=== PATIENT | female | born 1945 | race Caucasian/White ===

== ENCOUNTER 2023-03-01 09:00 | Day surgery (SDC) | payer OTHER ==
[2023-02-27 13:57] LABS: Hematocrit 40.2 % (36.0-45.0); Lymphocytes % 26.3 % (15.3-44.8); MCV 88.4 fL (80-100); MPV 8.9 fL (7.6-11.3); RBC Red Blood Cell Count 4.55 M/uL (3.86-4.86)
[2023-02-27 14:06] LABS: Protime INR 1.23
[2023-02-27 14:12] LABS: Potassium 4.4 mEq/L (3.5-5.1)
--- NOTE | 2023-02-27 16:17 | RAD REPORT ---
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 Hypertension COMPARISON: CHEST PA AND LAT 2 VIEW dated 03/07/2011; CHEST PA AND LAT 2 VIEW dated 03/21/2007 TECHNIQUE: PA and lateral views of the chest were obtained. FINDINGS: Serpiginous density at the right base is new or more conspicuous than on the prior exam, m ay relate to vascular prominence or calcification. Right juxta hilar 8 millimeter nodule may represen t a calcified granuloma. The lungs are otherwise clear. Heart size is normal and central vasculature is within normal limits. No pleural effusion or pneumothorax seen. No acute bony finding noted. IMPRESSION: No acute cardiopulmonary process. Incidental findings as above.
--- NOTE | 2023-02-28 13:27 | EKG ---
Test Date: 2023-02-27 Test Time: 13:32:23 Statistical Machine Servicer: NAHEED MEASUREMENT RESULTS: Intervals: Rate: 65 AK: QRSD: 76 QT: 400 QTc: 416 [place]: P: AK: QRS: 72 T: 59 INTERPRETIVE STATEMENTS: Atrial fibrillation with a competing junctional pacemaker Nonspecific ST abnormality, probably digitalis effect Abnormal ECG Compared to ECG 12/04/2001 07:46:00 ST (T wave) deviation now present Sinus bradycardia no longer present Electronically Signed On 02-28-23 13:25:49 CDT by Noe Alonso
[2023-03-01] MEDS ORDERED: LIDOCAINE 1% 20 ML MDV ONE (09:13)
[2023-03-01] MEDS ORDERED: HEPA 1000U/500MLS 2,000 UNIT/1,000 ML BAG IV ONE (09:13)
[2023-03-01] MEDS ORDERED: NA CHLORIDE 0.9% 500 ML ONE (09:48)
[2023-03-01] MEDS ORDERED: FENTANYL CITR 100 MCG/2 ML ONE (10:49)
[2023-03-01] MEDS ORDERED: ATROPINE SULF 1 MG/10 ML SYR IV ONE (10:50)
[2023-03-01] MEDS ORDERED: MIDAZOLAM HCL 2 MG/2 ML INJ ONE (10:50)
[2023-03-01 16:09] VITALS: BP 153/55; O2SAT 96
--- NOTE | 2023-03-01 21:08 | OP ---
Date of Procedure: 03/01/2023 Surgeon: NILSON KRAFT Procedure Performed: Selective bilateral carotid angiogram. Indication: Carotid stenosis. Access: Left femoral artery 4-Bulgarian closed with manual pressure. Complications: None. Bleeding: Less than 20 mL. Anesthesia: Total sedation time was 30 minutes. Description Of Procedure: After risks, benefits, and alternatives were explained, patient agreed to procedure and signed informed consent. Patient was brought into cardiac catheterization laboratory, prepped and draped in sterile fashion. Then, I accessed left femoral artery using ultrasound guidanc e, fluoroscopy, and micropuncture kit, and placed a 4-Bulgarian [place] sheath and took 4-Bulgarian 3DRC i nto the aortic root. Engaged the right common carotid, took standard views, and then the left common carotid and took standard views and the catheter was removed. Sheath was removed and manual pressur e was applied for closure with good hemostasis. Findings: 1.Right common carotid artery is normal, right internal carotid has proximal 30% stenosis and the ri ght external carotid appears normal. 2.Left common carotid is normal, the left internal carotid artery in the ostial and proximal segment is severely diseased, 80% to 90% stenosis. The left external carotid artery is normal. Conclusion: Severe left internal carotid artery stenosis and mild right internal carotid artery sten osis. Plan: Consult CT surgery for endarterectomy. /LUIS ALFREDO Voice ID: [id number] Report ID: [id number]
== END 2023-03-01 13:15 | disposition home or self-care (01) ==
LOC: CCL 09:00
PROVIDERS: ATTEND Internal Medicine
DX: I65.23 Occlusion and stenosis of bilateral carotid arteries (principal); I11.0 Hypertensive heart disease with heart failure; I50.9 Heart failure, unspecified; I34.2 Nonrheumatic mitral (valve) stenosis; I48.91 Unspecified atrial fibrillation; E78.5 Hyperlipidemia, unspecified; E11.9 Type 2 diabetes mellitus without complications; E78.00 Pure hypercholesterolemia, unspecified; F17.210 Nicotine dependence, cigarettes, uncomplicated; Z79.84 Long term (current) use of oral hypoglycemic drugs; Z79.899 Other long term (current) drug therapy; Z88.8 Allergy status to other drugs, medicaments and biological substances
CPT/HCPCS: 93005; 85025; 80048; 36415; 85610; 82947; 85730; 71046; 36222; 76937; C1893; Q9966; J2001; J2250; J3010; J7040; J0461

== ENCOUNTER 2024-01-20 16:50 | Inpatient (IN) | payer OTHER ==
--- NOTE | 2024-01-20 17:53 | EDPHYS ---
Physician Documentation [facility] Name: Margret Hsieh Age: 78 yrs Sex: Female : 1945 Arrival Date: 01/20/2024 Time: 16:50 Bed IW2 Private MD: Benny Slaughter V ED Physician Historical: - Allergies: 01/19 17:16 No Known Allergies; ld1 - Home Meds: 17:16 Xarelto 15 mg oral tablet [Active]; ld1 - PMHx: 17:16 Hypertensive disorder; Diabetes mellitus; CHF; Hypercholesterolemia; ld1 - PSHx: 17:16 Hysterectomy; Appendectomy; Back surgery; Heart ablation; ld1 - Immunization history:: Adult Immunizations up to date. - Infectious Disease History:: Denies. - Social history:: Smoking status: Patient denies any tobacco usage or history of. Vital Signs: 17:13 Pulse 62; Resp 18; Temp 97.5(TE); Pulse Ox 96% on R/A; Weight 62.6 kg; Height 5 ft. 4 ld1 in. ; Pain 0/10; 17:14 BP 125 / 50; ld1 17:13 Body Mass Index 23.69 (62.60 kg, 162.56 cm) ld1 17:13 Pain Scale: Adult ld1 MDM: 17:28 Patient medically screened. cp Administered Medications: No medications were administered Disposition Summary: 01/20/24 17:52 Hospitalization Ordered Notes: Hospitalization Status: Observation sb4 Provider: Benny Slaughter sb4 Location: Telemetry/MedSurg (observation) sb4 Condition: Fair sb4 Problem: new sb4 Symptoms: are unchanged sb4 Bed/Room Type: Standard sb4 Room Assignment: 230(01/20/24 17:53) bd Diagnosis - Altered mental status, unspecified sb4 - Hypercalcemia sb4 Forms: - Medication Reconciliation Form sb4 - SBAR form sb4 - Leadership Thank You Letter sb4 Signatures: Mai Lester Corey, PA PA cp Sims, Lauren, RN RN ld1 Mary Vasquez PA-C PA-C sb4 Corrections: (The following items were deleted from the chart) 17:53 17:52 sb4 bd
--- NOTE | 2024-01-20 17:53 | ER ---
Nurse's Notes [facility] Name: Margret Hsieh Age: 78 yrs Sex: Female : 1945 Arrival Date: 01/20/2024 Time: 16:50 Bed IW2 Private MD: Benny Slaughter V Diagnosis: Altered mental status, unspecified;Hypercalcemia Presentation: 01/19 17:14 Chief complaint: Patient states: Dr. Slaughter sent patient direct admit for rapid decline ld1 in health. AMS, weakness, confusion X 1 week. Hypercalcemia. Coronavirus screen: At this time, the client does not indicate any symptoms associated with coronavirus-19. Ebola Screen: No symptoms or risks identified at this time. 17:14 Method Of Arrival: Wheelchair ld1 17:14 Initial Sepsis Screen: Does the patient meet any 2 criteria? No. Patient's initial ld1 sepsis screen is negative. Does the patient have a suspected source of infection? No. Patient's initial sepsis screen is negative. Risk Assessment: Do you want to hurt yourself or someone else? Patient reports no desire to harm self or others. Onset of symptoms was January 20, 2024 at 17:15. 17:14 Acuity: JERRY 3 ld1 17:15 Chief complaint:. ld1 Triage Assessment: 17:16 General: Appears in no apparent distress. comfortable, Behavior is calm, cooperative, ld1 appropriate for age. Pain: Denies pain. EENT: No signs and/or symptoms were reported regarding the EENT system. Neuro: Level of Consciousness is awake, alert, obeys commands, Oriented to person, place, time, situation. Cardiovascular: Capillary refill < 3 seconds Patient's skin is warm and dry. Rhythm is regular. Respiratory: Airway is patent Respiratory effort is even, unlabored. GI: Abdomen is round non-distended. : No signs and/or symptoms were reported regarding the genitourinary system. Derm: No signs and/or symptoms reported regarding the dermatologic system. Musculoskeletal: No signs and/or symptoms reported regarding the musculoskeletal system. Historical: - Allergies: 17:16 No Known Allergies; ld1 - Home Meds: 17:16 Xarelto 15 mg oral tablet [Active]; ld1 - PMHx: 17:16 Hypertensive disorder; Diabetes mellitus; CHF; Hypercholesterolemia; ld1 - PSHx: 17:16 Hysterectomy; Appendectomy; Back surgery; Heart ablation; ld1 - Immunization history:: Adult Immunizations up to date. - Infectious Disease History:: Denies. - Social history:: Smoking status: Patient denies any tobacco usage or history of. Vital Signs: 17:13 Pulse 62; Resp 18; Temp 97.5(TE); Pulse Ox 96% on R/A; Weight 62.6 kg; Height 5 ft. 4 ld1 in. ; Pain 0/10; 17:14 BP 125 / 50; ld1 17:13 Body Mass Index 23.69 (62.60 kg, 162.56 cm) ld1 17:13 Pain Scale: Adult ld1 ED Course: 16:54 Patient arrived in ED. mr 16:55 Benny Slaughter MD is Private Physician. mr 17:15 Triage completed. ld1 17:16 Arm band placed on right wrist. ld1 17:52 Benny Slaughter MD is Hospitalizing Provider. sb4 Administered Medications: No medications were administered Outcome: 17:52 Decision to Hospitalize by Provider. sb4 18:33 Patient left the ED. as6 Signatures: Margaret Zaidi, Reg Reg mr Betsey Galloway, RN RN ld1 Enmanuel Holbrook RN RN as6 Mary Vasquez PA-C PALupe sb4 Corrections: (The following items were deleted from the chart) 17:16 17:14 Chief complaint: Patient states: Dr. Slaughter sent patient direct admit for rapid ld1 decline in health. AMS, weakness, confusion X 1 week. ld1
[2024-01-20 20:21] LABS: Absolute Eosinophils 0.2 K/uL (0-0.5); Absolute Lymphocytes (CBC) 2.9 K/uL (0.7-4.9); Absolute Monocytes 0.6 K/uL (0.1-1.3); Basophils % 0.6 % (0-1.3); Eosinophils % 2.2 % (0-4.4); Hematocrit 34.5 % (36.0-45.0); Hemoglobin 11.1 g/dL (12.0-15.0); Lymphocytes % 37.5 % (15.3-44.8); MCH 27.5 pg (27.0-35.0); MCHC 32.3 g/dL (32.0-36.0); MCV 85.1 fL (80-100); MPV 10.3 fL (7.6-11.3); Monocytes % 7.2 % (3.3-12.3); Neutrophils % 52.5 % (41.7-73.7); Platelets 181 thou/uL (152-406); RBC Red Blood Cell Count 4.05 M/uL (3.86-4.86); Red Cell Distribution Width 14.7 % (12.1-15.2)
[2024-01-20 20:31] LABS: PT Prothrombin Time 15.7 SECONDS (9.5-12.5); PTT, Activated Partial Thromb 33.5 SECONDS (24.3-36.9); Protime INR 1.44
[2024-01-20 20:43] VITALS: BMI 23.6
[2024-01-20 20:53] LABS: Calcium Oxalate Crystals- Ur Few /HPF (None Seen); Specific Gravity 1.018 (1.005-1.030); Sqamous Epithelial <5 /HPF (None Seen); Urine Bacteria None Seen /HPF (<20); Urine Bilirubin NEGATIVE (Negative); Urine Blood Negative (Negative); Urine Clarity Turbid (Clear); Urine Color Yellow (Yellow); Urine Culture Reflex Order NOT NEEDED; Urine Glucose NEGATIVE (Negative); Urine Ketones TRACE (Negative); Urine Microscopic Reflex YN ORDER UMIC; Urine Mucus Slight /HPF (None Seen); Urine Nitrite NEGATIVE (Negative); Urine Protein NEGATIVE (Negative); Urine Urobilinogen Normal (Normal); Urine pH 5.5 (5.0-7.0)
[2024-01-20 21:31] LABS: Albumin 3.6 g/dL (3.4-5.0); Albumin/Globulin Ratio 1.1 (1.1-1.8); Bilirubin Total 0.3 mg/dL (0.2-1.0); Globulin 3.2 g/dL (2.3-3.5); Magnesium 1.5 mg/dL (1.6-2.4); Phosphorus 1.8 mg/dL (2.5-4.9); Protein, Total 6.8 g/dL (6.4-8.2); Thyroid Stimulating Hormone 2.33 uIU/mL (0.358-3.740)
[2024-01-20] MEDS ORDERED: cloNIDine HCL 0.1 MG TAB PO PRN (21:52)
[2024-01-20] MEDS: ATORVASTATIN 40 MG TAB PO SCH (23:25)
[2024-01-20] MEDS: DULOXETINE 30 MG CAP PO SCH (23:25)
[2024-01-21] MEDS: MAGNESIUM OXIDE 400 MG TAB PO SCH (09:00)
[2024-01-21] MEDS: carvediloL 6.25 MG TAB PO SCH (09:09)
[2024-01-21] MEDS: FUROSEMIDE 20 MG TABLET PO SCH (09:10)
[2024-01-21] MEDS: PRIMIDONE 50 MG TAB PO SCH (09:10)
[2024-01-21] MEDS: GLIMEPIRIDE 2 MG TABLET PO SCH (09:10)
[2024-01-21] MEDS: LOSARTAN POTASSIUM 50 MG TABLET PO SCH (09:10)
[2024-01-21] MEDS: ASPIRIN EC 81 MG TAB PO SCH (09:11)
--- NOTE | 2024-01-21 11:36 | RAD REPORT ---
EXAM DESCRIPTION: MRI - Brain Wo Cont - 01/21/2024 8:38 am COMPARISON: MRI 2018 TECHNIQUE: Axial, sagittal, and coronal magnetic resonance images of the brain were obtained. FINDINGS: Marked signal within periventricular, deep and subcortical white matter which has progress ed since 2018. Abnormal signal also involves the pro matter right frontal and right parietal lobes. Prominent cerebral atrophy is present. Diffusion-weighted/ADC mapping does not reveal evidence of acute infarction. The ventricles are normal caliber. An extra-axial fluid collection is not noted. Fluid within the sinuses/mastoids is not seen IMPRESSION: Marked signal within periventricular, deep and subcortical white matter which has progre ssed since 2018. This may represent ischemic changes secondary to small vessel disease. A demyelinati ng or inflammatory process can also have this appearance Additional abnormal signal within the pro matter right frontal and parietal lobes may be secondary t o old infarction. An MRI with contrast may be helpful to determine if there is abnormal enhancement to indicate an acut e process
[2024-01-21] MEDS ORDERED: RIVAROXABAN 10 MG TABLET PO SCH (17:00)
[2024-01-21] MEDS: RIVAROXABAN 20 MG TABLET PO SCH (17:39)
--- NOTE | 2024-01-21 22:12 | P.PN ---
Subjective Date of Service: 01/21/24 Chief Complaint: WEAKNESS, CONFUSION Subjective: Improving OVER A WEEK SHE GOT GRADUALLY WEAKER AND QUIT WALKING. HER CALCIUM LEVEL CAME OUT HIGH AT 11.5 Review of Systems 10-point ROS is otherwise unremarkable Physical Examination - Vital Signs Temperature: 98.5 F Blood Pressure: 116/54 Pulse: 50 Respirations: 14 Pulse Ox (%): 90 - Physical Exam General: Acute distress, Mild distress HEENT: Atraumatic, PERRLA, EOMI Neck: Supple, JVD not distended Respiratory: Clear to auscultation bilaterally, Normal air movement Cardiovascular: Regular rate/rhythm, Normal S1 S2 Gastrointestinal: Normal bowel sounds, No tenderness Musculoskeletal: No tenderness Integumentary: No rashes Neurological: Other (GEN WEAK, DEMENTIA.) Lymphatics: No axilla or inguinal lymphadenopathy - Studies Medications List Reviewed: Yes Assessment And Plan - Current Problems (Diagnosis) (1) Altered mental state Current Visit: Yes Status: Acute Plan: MAY BE FROM HYPERCALCEMIA MRI NEG BRAIN EXCEPT FOR AGE RELATED CHANGES. CT CHEST REPORT PENDING CALLED DR. ESTRADA TO GET REPORT. (2) Hypercalcemia Current Visit: Yes Status: Acute Plan: LIKELY REASON FOR ALTERED MENTAL STATUS.
[2024-01-22 06:52] LABS: Hemoglobin 10.8 g/dL (12.0-15.0); RBC Red Blood Cell Count 3.89 M/uL (3.86-4.86)
[2024-01-22 06:53] LABS: Absolute Eosinophils 0.2 K/uL (0-0.5); Absolute Monocytes 0.6 K/uL (0.1-1.3); Basophils % 0.4 % (0-1.3); Eosinophils % 3.9 % (0-4.4); Hematocrit 32.7 % (36.0-45.0); Lymphocytes % 34.7 % (15.3-44.8); MCH 27.9 pg (27.0-35.0); MCHC 33.1 g/dL (32.0-36.0); MCV 84.1 fL (80-100); MPV 9.3 fL (7.6-11.3); Monocytes % 9.6 % (3.3-12.3); Neutrophils % 51.4 % (41.7-73.7); Nucleated Red Blood Cells % 0.2 % (0-0); Platelets 171 thou/uL (152-406); Red Cell Distribution Width 14.8 % (12.1-15.2)
[2024-01-22 07:06] LABS: Anion Gap 3.9 mEq/L (5.0-15.0); Potassium 3.9 mEq/L (3.5-5.1)
[2024-01-22 09:45] VITALS: O2SAT 91
--- NOTE | 2024-01-22 10:08 | RAD REPORT ---
EXAM DESCRIPTION: CT - Thorax W/ Con - 01/20/2024 11:01 pm CLINICAL HISTORY: Hypercalcemia COMPARISON: None TECHNIQUE: Computed axial tomography of the chest was obtained. 100 cc Isovue 300 was administered i ntravenously. All CT scans are performed using dose optimization technique as appropriate and may include automated exposure control or mA/KV adjustment according to patient size. FINDINGS: 1.9 centimeter spiculated nodule posterior right upper lobe. 4 millimeter left upper lobe nodule Mild COPD No mediastinal or hilar lymphadenopathy seen A pleural effusion is not present. A pericardial effusion is not seen. Cirrhotic liver suspected. Coronary arterial calcifications IMPRESSION: 1.9 centimeter right upper lobe nodule probably neoplasm . Further evaluation with a PET -CT scan, tissue sampling or follow-up CT chest 3 months recommended 4 millimeter left upper lobe nodule . Followup CT chest could be obtained in 1 year for re-evaluation
[2024-01-22 13:30] VITALS: BP 118/51; TEMP 97.4
--- NOTE | 2024-01-22 18:11 | P.DS ---
Admission Date: 01/22/24 Discharge Date: 01/22/24 Disposition: DC HOME/HOME HEALTH CARE Discharge Condition: FAIR Reason for Admission: WEAKNESS, CONFUSION - Problems (1) Altered mental state Status: Acute (2) Hypercalcemia Status: Acute Hospital Course: ZARINA CAME WITH WEAKNESS AND HYPERCALCEMIA. I ORDERED CT CHEST LUNG CANCER CAN GIVE RISE TO THIS. LUNG CT SHOWS 2 CM MASS. I WILL DISCUSS WITH PT ABOUT THIS IN OFFICE. SHE HAS WALKED WITH WALKER. CALCIUM HAS COME DOWN WITH IV FLUIDS. SHE IS STABLE TO GO HOME WITH DAUGHTER. Vital Signs/Physical Exam: Temp Pulse Resp BP Pulse Ox 97.4 F 64 18 118/51 L 92 01/22/24 12:00 01/22/24 12:00 01/22/24 12:00 01/22/24 12:00 01/22/24 12:00 Laboratory Data at Discharge: WBC 5.90 thou/uL (4.3-10.9) 01/22/24 06:15 Hgb 10.8 g/dL (12.0-15.0) L 01/22/24 06:15 Hct 32.7 % (36.0-45.0) L 01/22/24 06:15 Plt Count 171 thou/uL (152-406) 01/22/24 06:15 PT 15.7 SECONDS (9.5-12.5) H 01/20/24 19:57 INR 1.44 01/20/24 19:57 APTT 33.5 SECONDS (24.3-36.9) 01/20/24 19:57 Sodium 136 mEq/L (136-145) 01/22/24 06:15 Potassium 3.9 mEq/L (3.5-5.1) 01/22/24 06:15 BUN 22 mg/dL (7-18) H 01/22/24 06:15 Creatinine 0.81 mg/dL (0.55-1.02) 01/22/24 06:15 Glucose 157 mg/dL (74-106) H 01/22/24 06:15 Phosphorus 1.8 mg/dL (2.5-4.9) L 01/20/24 19:57 Magnesium 1.5 mg/dL (1.6-2.4) L 01/20/24 19:57 Total Bilirubin 0.3 mg/dL (0.2-1.0) 01/20/24 19:57 AST 17 U/L (15-37) 01/20/24 19:57 ALT 21 U/L (13-56) 01/20/24 19:57 Alkaline Phosphatase 56 U/L (45-117) 01/20/24 19:57 Home Medications: Aspirin [Aspirin EC] 81 mg PO DAILY 01/20/24 Atorvastatin Calcium [Lipitor] 40 mg PO BEDTIME 01/20/24 B-Complex with Vitamin C [B-Complex with C] 1 tab PO DAILY 01/20/24 Duloxetine HCl [Cymbalta] 30 mg PO BEDTIME 01/20/24 Furosemide [Lasix] 20 mg PO DAILY 01/20/24 Glimepiride 4 mg PO BID 01/20/24 Losartan Potassium [Cozaar] 25 mg PO DAILY 01/20/24 Magnesium Oxide [Mag 0X*] 400 mg PO DAILY 01/20/24 Metformin ER [Glucophage ER*] 1,000 mg PO BID 01/20/24 Primidone [Mysoline] 50 mg PO DAILY 01/20/24 Rivaroxaban [Xarelto] 20 mg PO BEDTIME 01/20/24 carvediloL [Carvedilol] 6.25 mg PO BID 01/20/24 Physician Discharge Instructions: Home Health arranged: [facility] P:[phone] F:[phone] Followup: Benny Slaughter MD [Primary Care Provider] - 1 Week
[2024-01-24 14:04] LABS: 1,25 Dihydroxy Vitamin D3 60 pg/mL; Vitamin D 1,25-Dihydroxy Total 60 pg/mL (18-72); Vitamin D,1,25-OH2, D2 <8 pg/mL
== END 2024-01-22 13:45 | disposition home health service (06) | DRG 641 ==
LOC: ER 16:50 → ERHOLD 17:42 → 2ND 18:10 → OBSVTOIN 01-22 08:59 → INTOOBSV 01-22 09:17
PROVIDERS: ADMIT Internal Medicine; ATTEND Internal Medicine
DX: E83.52 Hypercalcemia (principal); I10 Essential (primary) hypertension; E11.9 Type 2 diabetes mellitus without complications; E78.00 Pure hypercholesterolemia, unspecified; R91.8 Other nonspecific abnormal finding of lung field; F03.90 Unspecified dementia, unspecified severity, without behavioral disturbance, psychotic disturbance, mood disturbance, and anxiety; Z88.7 Allergy status to serum and vaccine; Z88.8 Allergy status to other drugs, medicaments and biological substances; Z90.49 Acquired absence of other specified parts of digestive tract; Z79.02 Long term (current) use of antithrombotics/antiplatelets; Z79.84 Long term (current) use of oral hypoglycemic drugs; Z79.82 Long term (current) use of aspirin; Z79.01 Long term (current) use of anticoagulants; Z90.710 Acquired absence of both cervix and uterus; Z79.899 Other long term (current) drug therapy
CPT/HCPCS: 36415; 70551; 71260; 80048; 80053; 81001; 82306; 82607; 82652; 82947; 83735; 83970; 84100; 84443; 85025; 85610; 85730; 97116; 97161; 97530; 99281; G0378; Q9967

== ENCOUNTER 2024-09-05 10:50 | Emergency (ER) | payer OTHER ==
--- NOTE | 2024-09-05 15:06 | ER ---
Nurse's Notes [facility] Name: Margret Hsieh Age: 78 yrs Sex: Female : 1945 Arrival Date: 09/05/2024 Time: 10:50 Bed 17 Private MD: Diagnosis: Epistaxis Presentation: 09/05 11:33 Chief complaint: Patient states: Spontaneous nose bleeding off/on since yesterday. No ll1 fever. On Xarelto. Coronavirus screen: Client denies travel out of the [place] in the last 14 days. At this time, the client does not indicate any symptoms associated with coronavirus-19. Ebola Screen: Patient denies travel to an Ebola-affected area in the 21 days before illness onset. 11:33 Method Of Arrival: Wheelchair ll1 12:04 Acuity: JERRY 3 iw 12:09 Initial Sepsis Screen: Does the patient meet any 2 criteria? No. Patient's initial ll1 sepsis screen is negative. Does the patient have a suspected source of infection? No. Patient's initial sepsis screen is negative. Risk Assessment: Do you want to hurt yourself or someone else? Patient reports no desire to harm self or others. Onset of symptoms was September 04, 2024. Triage Assessment: 12:09 General: Appears in no apparent distress. Behavior is calm, cooperative, appropriate ll1 for age. Pain: Denies pain. EENT: Reports nasal bleeding (resolved during triage). Historical: - Allergies: 11:32 potassium; ll1 - PMHx: 11:32 CHF; diabetes mellitus; Hypercholesterolemia; Hypertensive disorder; ll1 - PSHx: 11:32 Appendectomy; back surgery; Heart ablation; hysterectomy; ll1 - Immunization history:: Adult Immunizations up to date. - Infectious Disease History:: Denies. - Social history:: Smoking status: Patient denies any tobacco usage or history of. Screenin:30 [facility] ED Fall Risk Assessment (Adult) History of falling in the last 3 months, db including since admission No falls in past 3 months (0 pts) Confusion or Disorientation No (0 pts) Intoxicated or Sedated No (0 pts) Impaired Gait Yes (1 pt) Mobility Assist Device Used Yes (1 pt) Altered Elimination No (0 pt) Score/Fall Risk Level 0 - 2 = Low Risk Oriented to surroundings, Maintained a safe environment. Abuse screen: Denies threats or abuse. Denies injuries from another. Nutritional screening: No deficits noted. Tuberculosis screening: No symptoms or risk factors identified. Assessment: 13:30 Reassessment: Patient appears in no apparent distress at this time. Patient and/or db family updated on plan of care and expected duration. Pain level reassessed. Patient is alert, oriented x 3, equal unlabored respirations, skin warm/dry/pink. General: Appears in no apparent distress. comfortable, Behavior is calm, cooperative. Neuro: Level of Consciousness is awake, alert, obeys commands, Oriented to person, place, time, situation. Respiratory: Airway is patent Respiratory effort is even, unlabored, Respiratory pattern is regular, symmetrical. EENT: Reports NOSE BLEED THAT HAS STOPPED. 14:55 Reassessment: Patient appears in no apparent distress at this time. Patient and/or db family updated on plan of care and expected duration. Pain level reassessed. Patient is alert, oriented x 3, equal unlabored respirations, skin warm/dry/pink. PATIENT AMBULATORY TO RESTROOM. 15:32 Reassessment: Patient appears in no apparent distress at this time. Patient and/or db family updated on plan of care and expected duration. Pain level reassessed. Patient is alert, oriented x 3, equal unlabored respirations, skin warm/dry/pink. Vital Signs: 11:33 BP 116 / 51; Pulse 72; Resp 17; Temp 97.3; Pulse Ox 95% ; Weight 65.32 kg; Height 5 ft. ll1 2 in. ; Pain 0/10; 15:04 BP 164 / 60; am7 15:15 BP 148 / 54; Pulse 56; Resp 16; Pulse Ox 96% on R/A; db 11:33 Body Mass Index 26.34 (65.32 kg, 157.48 cm) ll1 11:33 Pain Scale: Adult ll1 ED Course: 10:52 Patient arrived in ED. mr 11:32 Arm band placed on. ll1 12:04 Triage completed. iw 12:47 Brian Rivero MD is Attending Physician. bo1 14:55 Lisa Fonseca, RN is Primary Nurse. db 14:58 No provider procedures requiring assistance completed. db 15:31 Patient has correct armband on for positive identification. Bed in low position. Call db light in reach. Side rails up X 1. Provided Education on: DISCHARGE AND FOLLOWUP. Pulse ox on. NIBP on. Warm blanket given. Pillow given. 15:32 Patient did not have IV access during this emergency room visit. db Administered Medications: No medications were administered Medication: 13:30 VIS not applicable for this client. db Outcome: 15:05 Discharge ordered by . bo1 15:32 Discharged to home ambulatory, with family, db 15:32 Condition: stable 15:32 Discharge instructions given to patient, family, Instructed on discharge instructions, follow up and referral plans. Prescriptions given X 1, 15:33 Patient left the ED. db Signatures: Margaret Zaidi, Reg Reg mr Elena Mitchell, RN RN iw Dave Saxena RN RN ll1 Lisa Fonseca RN RN db Brian Rivero MD MD bo1 Theodora Alfred am7 Corrections: (The following items were deleted from the chart) 12:25 11:33 Chief complaint: Patient states: Spontaneous node bleeding off/on since ll1 yesterday. No fever ll1 12:26 11:33 Chief complaint: Patient states: Spontaneous nose bleeding off/on since ll1 yesterday. No fever ll1 15:31 15:04 Pulse 68bpm; Pulse Ox 94%; am7 db
[2024-09-05 15:39] VITALS: TEMP 97.3
[2024-09-05 15:41] VITALS: BP 148/54; O2SAT 96
--- NOTE | 2024-09-06 15:33 | EDPHYS ---
Physician Documentation [facility] Name: Margret Hsieh Age: 78 yrs Sex: Female : 1945 Arrival Date: 09/05/2024 Time: 10:50 Bed 17 Private MD: ED Physician Brian Rivero HPI: 09/06 07:22 This 78 yrs old Female presents to ER via Wheelchair with complaints of Nose Bleed. bo1 07:22 The patient presents with a nose bleed, occurred from an unknown cause, Pt's family bo1 think she's picked her nose Pt is on a blood thinner - Xarelto. Onset: The symptoms/episode began/occurred suddenly, yesterday, And again this AM today at 3am. Pinching and pressure applied till stopped.. Hx of nosebleeds. Now, not bleeding and none in the past 2-3 hours. 07:26 The estimated quantity was perhaps 1 tablespoon of blood. bo1 07:51 Severity of symptoms: At their worst the symptoms were mild. bo1 07:52 Severity of symptoms: in the emergency department the symptoms have improved. bo1 Historical: - Allergies: 09/05 11:32 potassium; ll1 - PMHx: 11:32 CHF; diabetes mellitus; Hypercholesterolemia; Hypertensive disorder; ll1 - PSHx: 11:32 Appendectomy; back surgery; Heart ablation; hysterectomy; ll1 - Immunization history:: Adult Immunizations up to date. - Infectious Disease History:: Denies. - Social history:: Smoking status: Patient denies any tobacco usage or history of. ROS: 09/06 07:24 Constitutional: Negative for fever, chills, and weight loss bo1 ENT: Positive for nose bleed, At the right nostril only, no pain, Neck: Negative for pain with movement, pain at rest, Cardiovascular: Negative for chest pain, Respiratory: Negative for cough, shortness of breath, Abdomen/GI: Negative for abdominal pain, nausea and vomiting, All other systems are negative, Exam: 07:27 Constitutional: This is a well developed, well nourished patient who is awake, alert, bo1 and in no acute distress. 07:27 Constitutional: The patient appears alert, awake, comfortable, non-toxic, 07:27 Head/face: Exam is negative for acute changes, 07:27 ENT: Nose: Mild "wet" string of previous blood at the outside wall of the right anterior nostril, pt's family had applied Neosporin. No active bleeding in the nare and left is clear, Posterior pharynx: is normal, no acute changes, Clear, no blood streaks, 07:27 Neck: External neck: is normal, no acute changes, Vital Signs: 09/05 11:33 BP 116 / 51; Pulse 72; Resp 17; Temp 97.3; Pulse Ox 95% ; Weight 65.32 kg; Height 5 ft. ll1 2 in. ; Pain 0/10; 15:04 BP 164 / 60; am7 15:15 BP 148 / 54; Pulse 56; Resp 16; Pulse Ox 96% on R/A; db 11:33 Body Mass Index 26.34 (65.32 kg, 157.48 cm) ll1 11:33 Pain Scale: Adult ll1 MDM: 12:48 Medical Screening Exam initiated bo1 09/06 07:26 Differential diagnosis: spontaneous epistaxis, Pt on a blood thinner. Data reviewed: bo1 vital signs. 07:29 ED course: No action needed or recommended at the present time. TXA was discussed and bo1 both pt and family would like to try a PO off label use of TXA if the nosebleed reoccurs. Administered Medications: No medications were administered Disposition Summary: 09/05/24 15:05 Discharge Ordered Notes: Location: Home bo1 Problem: new bo1 Symptoms: have improved bo1 Condition: Stable bo1 Diagnosis - Epistaxis bo1 Followup: bo1 - With: Private Physician - When: Upon discharge from the Emergency Department - Reason: Recheck today's complaints, Continuance of care Discharge Instructions: - Discharge Summary Sheet bo1 - Nosebleed, Adult bo1 Forms: - Medication Reconciliation Form bo1 - Antibiotic Education bo1 - Prescription Opioid Use bo1 - Patient Portal Instructions bo1 - Leadership Thank You Letter bo1 Prescriptions: - tranexamic acid 650 mg Oral tablet - take 1 tablet ORAL route 3 times per day PRN NOSEBLEED; 6 tablet; Refills: 0, bo1 Product Selection Permitted Signatures: Dave Saxena RN RN ll1 Lisa Fonseca RN RN db Oei, MD TARA Torres bo1
== END 2024-09-05 15:33 | disposition home or self-care (01) ==
LOC: ER 10:50
DX: R04.0 Epistaxis (principal); Z79.01 Long term (current) use of anticoagulants
CPT/HCPCS: 99283

== ENCOUNTER 2024-09-18 19:28 | Emergency (ER) | payer OTHER ==
[2024-09-18 21:19] LABS: Absolute Eosinophils 0.3 K/uL (0-0.5); Absolute Lymphocytes (CBC) 2.1 K/uL (0.7-4.9); Absolute Monocytes 0.6 K/uL (0.1-1.3); Absolute Neutrophil 4.6 K/uL (1.8-8.0); Basophils % 0.5 % (0-1.3); Eosinophils % 3.9 % (0-4.4); Hematocrit 31.8 % (36.0-45.0); Hemoglobin 9.9 g/dL (12.0-15.0); Lymphocytes % 27.1 % (15.3-44.8); MCH 24.5 pg (27.0-35.0); MCHC 31.3 g/dL (32.0-36.0); MCV 78.3 fL (80-100); MPV 8.2 fL (7.6-11.3); Monocytes % 7.7 % (3.3-12.3); Neutrophils % 60.8 % (41.7-73.7); Nucleated Red Blood Cells % 0.1 % (0-0); Platelets 277 thou/uL (152-406); RBC Red Blood Cell Count 4.06 M/uL (3.86-4.86); Red Cell Distribution Width 16.9 % (12.1-15.2)
[2024-09-18 21:35] LABS: Albumin/Globulin Ratio 0.8 (1.1-1.8); Anion Gap 7.1 mEq/L (5.0-15.0); Bilirubin Total 0.2 mg/dL (0.2-1.0); Globulin 3.9 g/dL (2.3-3.5); Potassium 4.1 mEq/L (3.5-5.1); Protein, Total 6.9 g/dL (6.4-8.2)
[2024-09-18 22:06] LABS: Specific Gravity 1.017 (1.005-1.030); Sqamous Epithelial <5 /HPF (None Seen); Urine Bacteria <20 /HPF (<20); Urine Bilirubin NEGATIVE (Negative); Urine Blood Negative (Negative); Urine Clarity Clear (Clear); Urine Color Yellow (Yellow); Urine Crystals Unidentified Few /HPF (None Seen); Urine Culture Reflex Order NOT NEEDED; Urine Glucose NEGATIVE (Negative); Urine Ketones NEGATIVE (Negative); Urine Microscopic Reflex YN ORDER UMIC; Urine Nitrite NEGATIVE (Negative); Urine Protein NEGATIVE (Negative); Urine RBC <5 /HPF (None Seen); Urine Urobilinogen Normal (Normal); Urine WBC <5 /HPF (<5); Urine pH 5.5 (5.0-7.0)
--- NOTE | 2024-09-18 22:51 | RAD REPORT ---
EXAMINATION: CT Abdomen Pelvis W Contrast CLINICAL INDICATION: Female, 78 years old. urinary retention TECHNIQUE: CT abdomen and pelvis was performed, after the administration of IV contrast, as per [facility] protocol. Axial, sagittal and coronal reconstructions were obtained. One or more of the following dose reduction techniques were used: Automated exposure control, adjustment of the mA and k V according to patient size, and iterative reconstruction. Unless otherwise specified, incidental findings do not require dedicated imaging follow-up. COMPARISON: 01/20/[address] FINDINGS: LOWER CHEST: The visualized lung bases are clear. LIVER: Normal in size and contour. No focal lesion. BILIARY SYSTEM: Decompressed gallbladder limiting evaluation. No other suspicious abnormalities. SPLEEN: Normal size. No focal lesion. PANCREAS: No mass, ductal dilation, or zabrina-pancreatic fluid. ADRENALS: Nodular left adrenal gland thickening, stable. KIDNEYS: Normal size and contour. No hydronephrosis. URINARY BLADDER: Decompressed with Wheat catheter in place. GASTROINTESTINAL TRACT: No evidence of free air, significant intra-abdominal free fluid, bowel obstru ction or abscess. APPENDIX: Normal appendix. LYMPH NODES: No lymphadenopathy. MUSCULOSKELETAL: No acute or suspicious osseous abnormality. Sequelae of posterior spinal decompressi on, with pronounced marginally calcified disc extrusions at L1-2 and L2-3. ADDITIONAL FINDINGS: None. IMPRESSION: No acute or concerning abnormalities seen in the abdomen or pelvis. Sequelae of posterior spinal decompression with pronounced disc extrusions with annular calcification s at L1-2 and L2-3. Whether these findings relate to patient's symptoms is uncertain. There is concern for radiculopathy, additional evaluation by lumbar spine MRI would be more helpful.
--- NOTE | 2024-09-18 23:18 | ER ---
Nurse's Notes [facility] Name: Margret Hsieh Age: 78 yrs Sex: Female : 1945 Arrival Date: 09/18/2024 Time: 19:28 Bed 14 Private MD: Diagnosis: Urinary retention Presentation: 09/18 20:03 Chief complaint: Patient states: urinary retention onset yesterday. Pt states that she cm10 has not been able to urinate since yesterday. Coronavirus screen: Client denies travel out of the [place] in the last 14 days. Ebola Screen: Patient denies travel to an Ebola-affected area in the 21 days before illness onset. No symptoms or risks identified at this time. Initial Sepsis Screen: Does the patient meet any 2 criteria? No. Patient's initial sepsis screen is negative. Does the patient have a suspected source of infection? No. Patient's initial sepsis screen is negative. Risk Assessment: Do you want to hurt yourself or someone else? Patient reports no desire to harm self or others. Onset of symptoms was September 17, 2024. 20:03 Method Of Arrival: Ambulatory cm10 20:03 Acuity: JERRY 3 cm10 Triage Assessment: 20:04 General: Appears in no apparent distress. comfortable, Behavior is calm, cooperative. cm10 Pain: Denies pain. Neuro: No deficits noted. Level of Consciousness is awake, alert, obeys commands, Oriented to person, place, time, situation, Appropriate for age. Respiratory: No deficits noted. Airway is patent Respiratory effort is even, unlabored, Respiratory pattern is regular, symmetrical. Historical: - Allergies: 20:04 potassium; cm10 - PMHx: 20:04 CHF; diabetes mellitus; Hypercholesterolemia; Hypertensive disorder; Cerebrovascular cm10 accident; - PSHx: 20:04 Appendectomy; back surgery; Heart ablation; hysterectomy; cm10 - Immunization history:: Adult Immunizations up to date. - Infectious Disease History:: Denies. - Social history:: Smoking status: Patient denies any tobacco usage or history of. Screenin:00 [facility] ED Fall Risk Assessment (Adult) History of falling in the last 3 months, rg5 including since admission No falls in past 3 months (0 pts) Confusion or Disorientation No (0 pts) Intoxicated or Sedated No (0 pts) Impaired Gait Yes (1 pt) Mobility Assist Device Used Yes (1 pt) Altered Elimination Yes (1 pt) Score/Fall Risk Level 3 or more points = High Risk Oriented to surroundings, Maintained a safe environment, Hourly rounding (assess needs \T\ fall precautionary measures) done, Used ambulatory aids as needed (educated on \T\ assisted with). Abuse screen: Denies threats or abuse. Nutritional screening: No deficits noted. Tuberculosis screening: No symptoms or risk factors identified. Assessment: 20:00 General: Appears in no apparent distress. uncomfortable, Behavior is calm, cooperative, rg5 appropriate for age. 20:00 Pain: Denies pain. Neuro: Level of Consciousness is awake, alert, obeys commands, rg5 Oriented to person, place, time. Cardiovascular: Denies chest pain, Patient's skin is warm and dry. Respiratory: Airway is patent Trachea midline Respiratory effort is even, unlabored. GI: Abdomen is round non-distended. : Reports inability to void. EENT: No deficits noted. Derm: No signs and/or symptoms reported regarding the dermatologic system. Musculoskeletal: Circulation, motion, and sensation intact. Range of motion: intact in all extremities. 21:00 Reassessment: Patient and/or family updated on plan of care and expected duration. Pain rg5 level reassessed. Patient is alert, oriented x 3, equal unlabored respirations, skin warm/dry/pink. 22:09 Reassessment: Patient and/or family updated on plan of care and expected duration. Pain rg5 level reassessed. Patient is alert, oriented x 3, equal unlabored respirations, skin warm/dry/pink. 23:15 Reassessment: Patient and/or family updated on plan of care and expected duration. Pain rg5 level reassessed. Patient is alert, oriented x 3, equal unlabored respirations, skin warm/dry/pink. Patient states feeling better. Patient states symptoms have improved. Vital Signs: 20:03 BP 134 / 49; Pulse 64; Resp 16; Temp 97.7(TE); Pulse Ox 98% on R/A; Weight 65.32 kg; cm10 Height 5 ft. 2 in. ; Pain 0/10; 20:23 BP 143 / 53; Pulse 58; Resp 17; Pulse Ox 96% on R/A; rg5 21:30 BP 149 / 76; Pulse 62; Resp 17 S; Pulse Ox 96% on R/A; Pain 0/10; rg5 22:39 BP 140 / 73; Pulse 62; Resp 17; Pulse Ox 97% on R/A; Pain 0/10; rg5 20:03 Body Mass Index 26.34 (65.32 kg, 157.48 cm) cm10 20:03 Pain Scale: Adult cm10 21:30 Pain Scale: Adult rg5 22:39 Pain Scale: Adult rg5 ED Course: 19:30 Patient arrived in ED. jj6 20:00 Patient has correct armband on for positive identification. Bed in low position. Call rg5 light in reach. Side rails up X 1. Door closed. Noise minimized. Warm blanket given. Verbal reassurance given. 20:00 No provider procedures requiring assistance completed. Inserted saline lock: 20 gauge rg5 in right antecubital area, using aseptic technique. Blood collected. Flushed with 10 mL NS. 20:03 Deepthi Atwood, RN is Primary Nurse. cm10 20:04 Triage completed. cm10 20:04 Arm band placed on right wrist. Patient placed in waiting room. cm10 20:10 Gricelda Golden MD is Attending Physician. sd2 20:15 Asad Callejas, PAULINA is Primary Nurse. rg5 20:32 Bladder scan completed. 341ml. af3 21:34 Wheat cath inserted, using sterile technique, 16 Fr., by moshgiach, balloon inflated, to af3 gravity drainage, urine specimen collected. 22:09 CT Abd/Pelvis - IV Contrast Only In Process Unspecified. EDMS 23:33 Provided Education on: post er care. rg5 23:34 IV discontinued, bleeding controlled, No redness/swelling at site. Pressure dressing rg5 applied. Administered Medications: No medications were administered Medication: 20:00 VIS not applicable for this client. rg5 Outcome: 23:17 Discharge ordered by . sd2 23:33 Discharged to home ambulatory, rg5 23:33 Condition: stable 23:33 Instructed on discharge instructions, follow up and referral plans. Demonstrated understanding of instructions, follow-up care, 23:34 Patient left the ED. rg5 Signatures: Dispatcher [employer] EDMS TomaszDarling [email or web address] Gricelda Golden MD MD sd2 Deepthi Atwood, RN RN cm10 Asad Callejas, RN RN rg5 Donaldo, Marisabel af3
--- NOTE | 2024-09-18 23:18 | EDPHYS ---
Physician Documentation [facility] Name: Margret Hsieh Age: 78 yrs Sex: Female : 1945 Arrival Date: 09/18/2024 Time: 19:28 Bed 14 Private MD: ED Physician Gricelda Golden HPI: 09/18 20:40 This 78 yrs old Female presents to ER via Ambulatory with complaints of Urinary sd2 Retention. 20:40 78 yo F reports inability to urinate since yesterday morning. No dribbling but states sd2 she does not drink much aside from milk. She is on diuretics for CHF. Denies any abdominal pain and has been having normal BMs. NO recent medication changes or other issues. Denies abdominal distention or discomfort or any other symptoms.. Historical: - Allergies: 20:04 potassium; cm10 - PMHx: 20:04 CHF; diabetes mellitus; Hypercholesterolemia; Hypertensive disorder; Cerebrovascular cm10 accident; - PSHx: 20:04 Appendectomy; back surgery; Heart ablation; hysterectomy; cm10 - Immunization history:: Adult Immunizations up to date. - Infectious Disease History:: Denies. - Social history:: Smoking status: Patient denies any tobacco usage or history of. ROS: 20:40 Constitutional: Negative for fever, chills, and weight loss, Eyes: Negative for injury, sd2 pain, redness, and discharge, Cardiovascular: Negative for chest pain, palpitations, and edema, Respiratory: Negative for shortness of breath, cough, wheezing. Abdomen/GI: Negative for abdominal pain, nausea, vomiting, diarrhea. : Negative for dysuria, urinary frequency, hesitancy, urgency and hematuria. Positive for retention. MS/Extremity: Negative for injury and deformity, Skin: Negative for injury, rash, and discoloration, Exam: 20:40 Constitutional: This is a well developed, well nourished patient who is awake, alert, sd2 and in no acute distress. Head/Face: Normocephalic, atraumatic. Eyes: EOMI, normal conjunctiva bilaterally Chest/axilla: Normal chest wall appearance and motion. Nontender with no deformity. Cardiovascular: Regular rate and rhythm with a normal S1 and S2. No gallops, murmurs, or rubs. 2+ distal pulses. Respiratory: Lungs have equal breath sounds bilaterally, clear to auscultation and percussion. No rales, rhonchi or wheezes noted. No increased work of breathing, no retractions or nasal flaring. Abdomen/GI: Soft, non-tender, with normal bowel sounds. No guarding or rebound. No evidence of tenderness throughout. Skin: Warm, dry with normal turgor. Normal color with no rashes, no lesions, and no evidence of cellulitis. MS/ Extremity: Pulses equal, no cyanosis. Neurovascular intact. Full, normal range of motion. Psych: Awake, alert, with orientation to person, place and time. Behavior, mood, and affect are within normal limits. Vital Signs: 20:03 BP 134 / 49; Pulse 64; Resp 16; Temp 97.7(TE); Pulse Ox 98% on R/A; Weight 65.32 kg; cm10 Height 5 ft. 2 in. ; Pain 0/10; 20:23 BP 143 / 53; Pulse 58; Resp 17; Pulse Ox 96% on R/A; rg5 21:30 BP 149 / 76; Pulse 62; Resp 17 S; Pulse Ox 96% on R/A; Pain 0/10; rg5 22:39 BP 140 / 73; Pulse 62; Resp 17; Pulse Ox 97% on R/A; Pain 0/10; rg5 20:03 Body Mass Index 26.34 (65.32 kg, 157.48 cm) cm10 20:03 Pain Scale: Adult cm10 21:30 Pain Scale: Adult rg5 22:39 Pain Scale: Adult rg5 MDM: 20:10 Medical Screening Exam initiated sd2 20:40 Differential diagnosis: mass, UTI, functional bladder issue, medication effect among sd2 others. Data reviewed: vital signs, nurses notes, lab test result(s), radiologic studies. Historians other than the Patient: Daughter/Son: Daughter at . Care significantly affected by the following chronic conditions: Diabetes, Hypertension, Congestive Heart Failure. 23:15 Counseling: I had a detailed discussion with the patient and/or guardian regarding the sd2 historical points, exam findings, and any diagnostic results supporting the discharge/admit diagnosis, lab results, radiology results, the need for outpatient follow up, to return to the emergency department if symptoms worsen or persist or if there are any questions or concerns that arise at home. ED course: Catheter placed with only about 400 mL out. Also noted significant amount of urine in diaper by RN. Labs reassuring. CT with no acute findings. Pt's daughter reports she is unsure if the patient really cannot urinate or just feels the urge to go and nothing comes out. No UTI on urine testing. Offered to keep catheter in and patient to follow up with urology but daughter would prefer to take it out as she believes the patient can urinate. They will return for any issues and follow up with her doctor. They verbalize understanding of dc plan and strict return precautions.. 09/18 20:40 Order name: CBC with Diff; Complete Time: 22:10 sd2 09/18 20:40 Order name: CMP; Complete Time: 22:10 sd2 09/18 20:40 Order name: Urinalysis w/ reflexes; Complete Time: 22:10 sd2 09/18 20:40 Order name: CT Abd/Pelvis - IV Contrast Only; Complete Time: 22:54 sd2 09/18 20:27 Order name: Bladder Scanner; Complete Time: 20:32 sd2 09/18 20:40 Order name: Cath; Complete Time: 21:31 sd2 Administered Medications: No medications were administered Disposition Summary: 09/18/24 23:17 Discharge Ordered Problem: new sd2 Symptoms: have improved sd2 Condition: Stable sd2 Diagnosis - Urinary retention sd2 Followup: sd2 - With: Private Physician - When: 1 - 2 days - Reason: Recheck today's complaints, Continuance of care, Re-evaluation by your physician Discharge Instructions: - Discharge Summary Sheet sd2 - Acute Urinary Retention, Female sd2 Forms: - Medication Reconciliation Form sd2 - Antibiotic Education sd2 - Prescription Opioid Use sd2 - Patient Portal Instructions sd2 - Leadership Thank You Letter sd2 Signatures: Dispatcher [employer] Gricelda Lopez MD MD sd2 Deepthi Atwood RN RN cm10 Corrections: (The following items were deleted from the chart) 20:40 20:40 Abdomen Pelvis W Con+CT.RAD.BRZ ordered. EDID EDMS
[2024-09-19 00:30] VITALS: TEMP 97.7
[2024-09-19 00:35] VITALS: BP 140/73; O2SAT 97
== END 2024-09-18 23:34 | disposition home or self-care (01) ==
LOC: ER 19:28
DX: R33.9 Retention of urine, unspecified (principal)
CPT/HCPCS: 85025; 81001; 36415; 80053; 74177; 51702; 99284; Q9967

== ENCOUNTER 2025-01-13 07:40 | Day surgery (SDC) | payer OTHER ==
[2025-01-13] MEDS ORDERED: NA CHLORIDE 0.9% 1,000 ML ONE (08:12)
[2025-01-13] MEDS ORDERED: FLUMAZENIL 0.1 MG/ML (5 mL VIAL) IV ONE (08:29)
[2025-01-13] MEDS ORDERED: MIDAZOLAM HCL 2 MG/2 ML INJ ONE (08:30)
[2025-01-13] MEDS ORDERED: NALOXONE HCL 2 MG/2 ML VIAL ONE (08:30)
[2025-01-13] MEDS ORDERED: FENTANYL CITR 100 MCG/2 ML ONE (08:30)
[2025-01-13] MEDS ORDERED: ONDANSETRON 4 MG/2 ML VIAL ONE (08:30)
[2025-01-13 09:38] VITALS: BMI 24.3
--- NOTE | 2025-01-13 11:16 | RAD REPORT ---
EXAMINATION: CT Lung Biopsy Perc w/CT INDICATION: LUNG MASS Pre-procedure diagnosis: Right lung mass Post-procedure diagnosis: Same as above. COMPLICATIONS: No immediate complications. PROCEDURE DETAILS: Consent: Informed consent for the procedure was obtained following discussion of the risks, benefits and alternatives with the patient. Time-out was performed prior to the procedure. Sedation: Moderate sedation (conscious sedation) Administered by: Nurse, or other independent traine d observer, with level of consciousness and vital signs continuously monitored. Total sedation administered: 0.5 mg Versed and 50 mcg Fentanyl. Total intra-service sedation time: 32 minutes. Biopsy: The patient was placed in prone position on CT table. The area was prepped and draped in the usual sterile fashion. Initial scanning revealed trace layering right pleural effusion. Redemonstration of irregular posterior right upper lobe mass today measuring 2.6 cm, adjacent to a pu lmonary vessel. Local anesthesia was administered. Under CT guidance, an 18 gauge biopsy needle was advanced to the target and biopsy was performed. Number of specimens/passes: 3 Additional sampling description: None. Preliminary assessment of sample adequacy: Adequate The biopsy needle was removed and a sterile dressing was applied. Post-biopsy imaging findings: No evidence of thorax. Patchy alveolar opacification around the mass an d more anteriorly in the right upper lobe, probably related to scattered alveolar hemorrhages Additional Details: Estimated blood loss: Less than 10 mL. IMPRESSION: Technically successful CT-guided biopsy of right upper lung lobe mass.
--- NOTE | 2025-01-13 11:30 | RAD REPORT ---
EXAMINATION: ONE VIEW CHEST XR CLINICAL INDICATION: Female, 79 years old.,R/O PNEUMOTHORAX POST LUNG BX TECHNIQUE: Frontal chest projection is submitted. Examination is limited by patient positioning and t echnique. COMPARISON: 12/15/2024 FINDINGS: Progressive patchy upper to midlung opacity, suggesting known mass with adjacent postbiopsy changes, and developing right basilar opacity as well, could relate to atelectasis or sutural mild opacification.. No pneumothorax or sizable effusion. The heart is normal in size. Mediastinal contou rs are unremarkable. IMPRESSION: No appreciable pneumothorax. Right airspace opacities as above.
--- NOTE | 2025-01-13 12:54 | RAD REPORT ---
EXAMINATION: ONE VIEW CHEST XR CLINICAL INDICATION: Female, 79 years old.,R/O PNEUMO. S/P LUNG BX TECHNIQUE: Frontal chest projection is submitted. Examination is limited by patient positioning and t echnique. COMPARISON: Same day chest radiograph at 1103 hours FINDINGS: Similar degree of inflation, with some improvement of aeration around the recently biopsied right upp er lobe mass and the right lung base. No new focal opacities. No pneumothorax or sizable effusion. The heart is normal in size. Mediastinal contours are unremarkable. IMPRESSION: No pneumothorax. Partial improvement of aeration as above.
[2025-01-13 15:42] VITALS: BP 148/49; TEMP 98.2
[2025-01-13 15:45] VITALS: O2SAT 95
== END 2025-01-13 13:10 | disposition home or self-care (01) ==
LOC: DS 07:40
PROVIDERS: ATTEND Internal Medicine
PROC: 0BBC3ZX Excision of Right Upper Lung Lobe, Percutaneous Approach, Diagnostic (ICD-10-PCS; principal; 2025-01-13)
DX: D3A.8 Other benign neuroendocrine tumors (principal)
CPT/HCPCS: 32408; 82947; 88305; 77012; 71045 ×2; J2250; J3010; J7030; J2310; J2405